=== PATIENT | male | born 1980 | race Asian ===

== ENCOUNTER 2018-10-03 03:11 | Emergency (ER) | payer SELFPAY ==
[~2018-10-03] VITALS: Ht 167.6 cm; Wt 81.6 kg
[2018-10-03 03:13] VITALS: Ht 167.6 cm; Wt 81.6 kg
[2018-10-03 05:23] VITALS: BP 127/85
== END 2018-10-03 05:23 | disposition home or self-care (01) ==
LOC: ED 03:11
DX: T63.441A Toxic effect of venom of bees, accidental (unintentional), initial encounter (principal); M79.89 Other specified soft tissue disorders; Y92.89 Other specified places as the place of occurrence of the external cause
CPT/HCPCS: 90715; J7512; Q0163